=== PATIENT | male | born 1995 | race Caucasian/White ===

== ENCOUNTER 2016-09-29 21:22 | Emergency (ER) | payer OTHER ==
[2016-09-29 21:41] VITALS: BP 145/70; PULSE 80; TEMP 97.9; BMI 28.3
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
== END 2016-09-29 23:02 | disposition home or self-care (01) ==
LOC: JERFT 21:22
DX: S49.81XA Other specified injuries of right shoulder and upper arm, initial encounter (principal); Y35.491A Legal intervention involving other sharp objects, law enforcement official injured, initial encounter; Y93.89 Activity, other specified; Y92.89 Other specified places as the place of occurrence of the external cause; Y99.0 Civilian activity done for income or pay
CPT/HCPCS: 73070-TC-RT; 99281-25

== ENCOUNTER 2017-01-10 01:32 | Emergency (ER) | payer OTHER ==
[2017-01-10] MEDS ORDERED: BACITRACIN 0.9 GM PACKET ONE (01:55)
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
[2017-01-10 02:11] VITALS: BP 132/75; PULSE 73; TEMP 98.6; BMI 25.0
[2017-01-10] MEDS ORDERED: DIPHTH,PERTUSS(ACELL),TET 0.5 ML DISP.SYRIN IM ONE (03:23)
== END 2017-01-10 03:28 | disposition home or self-care (01) ==
LOC: JER 01:32
PROC: 3E0234Z Introduction of Serum, Toxoid and Vaccine into Muscle, Percutaneous Approach (ICD-10-PCS; principal; 2017-01-10)
DX: S60.512A Abrasion of left hand, initial encounter (principal); Y35.891A Legal intervention involving other specified means, law enforcement official injured, initial encounter; W01.0XXA Fall on same level from slipping, tripping and stumbling without subsequent striking against object, initial encounter; Y93.02 Activity, running; Y92.89 Other specified places as the place of occurrence of the external cause; Y99.0 Civilian activity done for income or pay
CPT/HCPCS: 90715; 99282-25

== ENCOUNTER 2017-06-01 10:59 | Emergency (ER) | payer OTHER ==
[2017-06-01 11:46] VITALS: BP 134/64; PULSE 76; TEMP 98.2; BMI 28.1
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
== END 2017-06-01 13:03 | disposition home or self-care (01) ==
LOC: JERFT 10:59
DX: Z77.21 Contact with and (suspected) exposure to potentially hazardous body fluids (principal); S60.811A Abrasion of right wrist, initial encounter; Y35.811A Legal intervention involving manhandling, law enforcement official injured, initial encounter; Y93.89 Activity, other specified; Y92.89 Other specified places as the place of occurrence of the external cause; Y99.0 Civilian activity done for income or pay
CPT/HCPCS: 99281-25

== ENCOUNTER 2017-07-12 17:31 | Emergency (ER) | payer OTHER ==
[2017-07-12 17:49] VITALS: BP 144/76; PULSE 78; TEMP 98.2; BMI 28.8
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
== END 2017-07-12 19:06 | disposition home or self-care (01) ==
LOC: JER 17:31 → JERFT 17:31
DX: S49.81XA Other specified injuries of right shoulder and upper arm, initial encounter (principal); Y35.811A Legal intervention involving manhandling, law enforcement official injured, initial encounter; Y93.89 Activity, other specified; Y92.89 Other specified places as the place of occurrence of the external cause; Y99.0 Civilian activity done for income or pay
CPT/HCPCS: 73030-TC-RT-FY; 99281-25

== ENCOUNTER 2017-07-15 21:53 | Emergency (ER) | payer OTHER ==
[2017-07-15 22:10] VITALS: BP 149/92; PULSE 87; TEMP 98.4; BMI 28.8
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
== END 2017-07-15 23:00 | disposition home or self-care (01) ==
LOC: JERFT 21:53
DX: S60.221A Contusion of right hand, initial encounter (principal); S60.511A Abrasion of right hand, initial encounter; Y35.811A Legal intervention involving manhandling, law enforcement official injured, initial encounter; Y93.89 Activity, other specified; Y92.89 Other specified places as the place of occurrence of the external cause; Y99.0 Civilian activity done for income or pay
CPT/HCPCS: 73130-TC-RT-FY; 99281-25

== ENCOUNTER 2018-10-14 00:42 | Emergency (ER) | payer OTHER ==
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
[2018-10-14 01:22] VITALS: BP 135/84; PULSE 73; TEMP 97.6; BMI 30.8
[2018-10-14 02:29] LABS: LYMPH % 29.3 % (8-40); MCH 30.5 pg (25.7-33.7); MEAN PLT VOLUME 8.8 fl (7.5-11.1)
[2018-10-14 02:33] LABS: BASO % 0.5 % (0-2.0); EOS % 1.3 % (0-4.5); HEMATOCRIT 43.4 % (35.4-49); HEMOGLOBIN 14.7 GM/dL (11.7-16.9); MEAN CELL VOLUME 89.9 fl (80-96); MONO % 6.9 % (3.8-10.2); PLATELET COUNT 238 K/MM3 (134-434); RBC 4.83 M/mm3 (4.00-5.60); RDW 12.9 % (11.9-15.9); WHITE BLOOD COUNT 8.5 K/mm3 (4.0-10.0)
[2018-10-14 02:54] LABS: ALBUMIN 4.3 g/dl (3.4-5.0); BILIRUBIN,TOTAL 0.8 mg/dL (0.2-1); BLOOD UREA NITROGEN 21.5 mg/dL (7-18); CALCIUM 9.3 mg/dL (8.5-10.1); PHOSPHOROUS 3.7 mg/dL (2.5-4.9); POTASSIUM 3.8 mmol/L (3.5-5.1); TOT PROT 7.4 g/dl (6.4-8.2)
[2018-10-14 04:00] LABS: URIC ACID 8.3 mg/dL (2.6-7.2)
== END 2018-10-14 02:05 | disposition home or self-care (01) ==
LOC: JER 00:42
DX: Z77.21 Contact with and (suspected) exposure to potentially hazardous body fluids (principal); Y35.811A Legal intervention involving manhandling, law enforcement official injured, initial encounter; Y93.89 Activity, other specified; Y92.89 Other specified places as the place of occurrence of the external cause; Y99.0 Civilian activity done for income or pay
CPT/HCPCS: 36415; 80053; 82465; 82977; 83615; 84100; 84478; 84550; 85025; 86317; 86706; 86803; 87340; 87389; 99282-25